=== PATIENT | female | born 1980 | race African-American/Black ===

== ENCOUNTER 2018-12-12 16:32 | Emergency (ER) | payer OTHER ==
[~2018-12-12] VITALS: Ht 157.5 cm; Wt 49.9 kg
[2018-12-12 16:42] VITALS: BP 134/78
[2018-12-12] MEDS ORDERED: ACETAMINOPHEN ES 500 MG TABLET ONE (17:56)
[2018-12-12] MEDS ORDERED: IBUPROFEN 600 MG TABLET PO ONE ×2 (17:57→18:00)
[2018-12-12] MEDS ORDERED: ACETAMINOPHEN ES 500 MG TABLET PO ONE (18:00)
== END 2018-12-12 19:01 | disposition home or self-care (01) ==
LOC: ER 16:32
DX: S93.491A Sprain of other ligament of right ankle, initial encounter (principal); J45.909 Unspecified asthma, uncomplicated; W11.XXXA Fall on and from ladder, initial encounter; Y93.89 Activity, other specified; Y92.89 Other specified places as the place of occurrence of the external cause; Y99.8 Other external cause status
CPT/HCPCS: 73552; 73590-TC; 73610-TC; 73630-TC